=== PATIENT | female | born 1965 | race Caucasian/White ===

== ENCOUNTER 2020-07-24 22:58 | Emergency (ER) | payer MEDICAID ==
[~2020-07-24] VITALS: Ht 162.6 cm; Wt 54.4 kg
[2020-07-24 23:15] VITALS: BP 106/76
--- NOTE | 2020-07-24 23:15 | NUR ---
ED Nurse Note: Patient brought into ED from the street by SANDR[facility] 60 for c/o abdominal pain that has been intermittent for years. Upon ED arrival, patient presents lethargic. Patient is able to provide name and answer what year it is after painful stimuli. She falls asleep in between answering questions. Patient is unable to provide detailed history due to mental status. Denies n/v/d. She is breathing normal and unlabored, 98% o2 sat on RA. Safety measures met; will cont. to monitor.
--- NOTE | 2020-07-24 23:15 | NUR ---
ED Nurse Note: Pt placed on preparation operator for monitoring.
--- NOTE | 2020-07-24 23:35 | Emergency Room Report ---
History of Present Illness General Chief Complaint: Abdominal Pain Source: EMS Present Illness HPI Paramedics transported this patient with abdominal pain. She was ambulatory and speaking with them initially. She complained about generalized abdominal pain. Did not rate the pain. I did not give her any treatment in the field either. The patient has become sleepy and will not answer questions. She is wearing a binder. They claim that she says that she has a history of abdominal pain. Also they claim that she has a history of GI cancer. They are uncertain whether she took any medication prior to coming in. The patient is lethargic and not answering questions therefore review of systems is not able to be completed at this time. Allergies: Coded Allergies: No Known Allergies (Unverified , 07/24/20) COVID-19 Screening Contact w/high risk pt: No Experienced COVID-19 symptoms?: No COVID-19 Testing performed GLAZE HANDLER: No Patient History Limited by: medical condition Past Medical History: see triage record Social History: Reports: smoking, drug use - See tox screen Social History Narrative From home although she states she is homeless at this time Reviewed Nursing Documentation: PMH: Agreed; PSxH: Agreed Nursing Documentation-PMH Hx Cardiac Problems: Yes Hx Hypertension: Yes Hx Asthma: Yes Hx Diabetes: Yes Hx Cancer: Yes - stomach History Of Psychiatric Problem: Yes Hx Cerebrovascular Accident: Yes Hx Seizures: Yes Review of Systems All Other Systems: limited Physical Exam Vital Signs Date Time Temp Pulse Resp B/P (MAP) Pulse Ox O2 Delivery O2 Flow Rate FiO2 07/24/20 23:02 98.2 78 18 106/76 (86) 98 Room Air Sp02 EP Interpretation: reviewed, normal General Appearance: no apparent distress, lethargic Eyes: bilateral eye PERRL, bilateral eye Scleral Injection ENT: other - Wearing mask Neck: supple Respiratory: lungs clear, normal breath sounds Cardiovascular #1: regular rate, rhythm Cardiovascular #2: 2+ radial (L) Gastrointestinal: soft, no guarding, no rebound, tenderness - Reacts with [place] breast where hands with deep palpation in epigastric area, other, decreased bowel sounds Genitourinary: no CVA tenderness Musculoskeletal: back normal, normal range of motion Neurologic: motor strength/tone normal, sensory intact, other - Lethargic Psychiatric: depressed affect - Lethargy Skin: no rash, warm/dry Medical Decision Making Homeless Attestation I, The treating physician Dr. Louis, have assessed and agree that patient is medically stable for discharge to an outpatient disposition. Diagnostic Impression: Primary Impression: Abdominal pain Qualified Codes: R10.84 - Generalized abdominal pain Additional Impression: Cocaine abuse ER Course Patient presents with complaints of generalized abdominal pain but is also l ethargic at this time. It is uncertain whether she took an opiate. She is protecting her airway and respiratory status is adequate with oxygen saturation of 99% on room air. Differential includes appendicitis, pancreatitis, gastritis, diverticulitis, urinary tract infection amongst others. Complicated exam as she appears to have taken some analgesic making her lethargic at this time. Evaluation with EKG, chest x-ray, abdomen film and labs. Treatment with IV hydration. As the patient is not complaining about pain at this time no analgesia or antinausea medication is ordered. EKG sinus rhythm rate of [address]-T wave changes. Chest x-ray with globular heart. Abdominal film with nonspecific bowel gas pattern with pronounced stomach bubble, increase stool. Labs remarkable for normal white count with slight anemia and normal platelets. CMP with minimally elevated glucose and BUN and creatinine. Lipase is minimally elevated. Alkaline phosphatase minimally elevated. Urinalysis without pyuria but ketones present. Tox screen positive for cocaine. Patient sleeping soundly. Because of increased stool load lactulose given orally. After several hours of observation patient awakens easily. Discussed results with patient including positive tox screen. She denies pain at this time. Abdomen is soft without guarding or rebound. She reports using a walker because of DVTs in her legs. There is no calf pain, swelling or edema at this time. Patient is ambulatory. Discussed the need for outpatient follow-up. No medical emergency at this time with decreased pain. Patient stable for outpatient observation and treatment. Laboratory Tests Test 07/24/20 23:20 07/25/20 00:20 White Blood Count 5.1 K/UL (4.8-10.8) Red Blood Count 4.21 M/UL (4.20-5.40) Hemoglobin 11.5 G/DL (12.0-16.0) L Hematocrit 34.0 % (37.0-47.0) L Mean Corpuscular Volume 81 FL (80-99) Mean Corpuscular Hemoglobin 27.2 PG (27.0-31.0) Mean Corpuscular Hemoglobin Concent 33.6 G/DL (32.0-36.0) Red Cell Distribution Width 15.8 % (11.6-14.8) H Platelet Count 184 K/UL (150-450) Mean Platelet Volume 6.3 FL (6.5-10.1) L Neutrophils (%) (Auto) 37.6 % (45.0-75.0) L Lymphocytes (%) (Auto) 47.1 % (20.0-45.0) H Monocytes (%) (Auto) 10.6 % (1.0-10.0) H Eosinophils (%) (Auto) 3.6 % (0.0-3.0) H Basophils (%) (Auto) 1.1 % (0.0-2.0) Prothrombin Time 10.8 SEC (9.30-11.50) Prothrombin Time INR 1.0 (0.9-1.1) Activated Partial Thromboplast Time 26 SEC (23-33) Urine Color Pale yellow Urine Appearance Clear Urine pH 5 (4.5-8.0) Urine Specific [place] 1.025 (1.005-1.035) Urine Protein 1+ (NEGATIVE) H Urine Glucose (UA) Negative (NEGATIVE) Urine Ketones 1+ (NEGATIVE) H Urine Blood Negative (NEGATIVE) Urine Nitrite Negative (NEGATIVE) Urine Bilirubin Negative (NEGATIVE) Urine Urobilinogen 4 MG/DL (0.0-1.0) H Urine Leukocyte Esterase 1+ (NEGATIVE) H Urine RBC 2-4 /HPF (0 - 2) H Urine WBC 2-4 /HPF (0 - 2) Urine Squamous Epithelial Cells Occasional /LPF Urine Bacteria Occasional /HPF (NONE) Urine Hyaline Casts 5-10 /LPF (NONE) H Urine Mucus Few /LPF (NONE/OCC) H Sodium Level 137 MMOL/L (136-145) Potassium Level 3.8 MMOL/L (3.5-5.1) Chloride Level 101 MMOL/L (98-107) Carbon Dioxide Level 31 MMOL/L (21-32) Blood Urea Nitrogen 22 mg/dL (7-18) H Creatinine 1.1 MG/DL (0.55-1.30) Estimated Glomerular Filtration Rate 51.3 mL/min (>60) Glucose Level 137 MG/DL (74-106) H Calcium Level 8.3 MG/DL (8.5-10.1) L Total Bilirubin 0.2 MG/DL (0.2-1.0) Aspartate Amino Transferase (AST) 22 U/L (15-37) Alanine Aminotransferase (ALT) 21 U/L (12-78) Alkaline Phosphatase 128 U/L (46-116) H Troponin I 0.023 ng/mL (0.000-0.056) Total Protein 6.5 G/DL (6.4-8.2) Albumin 3.9 G/DL (3.4-5.0) Globulin 2.6 g/dL Albumin/Globulin Ratio 1.5 (1.0-2.7) Lipase 458 U/L (73-393) H Urine Opiates Screen Negative (NEGATIVE) Urine Barbiturates Screen Negative (NEGATIVE) Phencyclidine (PCP) Screen Negative (NEGATIVE) Urine Amphetamines Screen Negative (NEGATIVE) Urine Benzodiazepines Screen Negative (NEGATIVE) Urine Cocaine Screen Positive (NEGATIVE) H Urine Marijuana (THC) Screen Negative (NEGATIVE) EKG Diagnostic Results Rate: normal Rhythm: NSR ST Segments: no acute changes - Nonspecific ST-T wave changes Rhythm Strip Diag. Results EP Interpretation: yes Rhythm: NSR, no PVC's, no ectopy Chest X-Ray Diagnostic Results Chest X-Ray Diagnostic Results : Chest X-Ray Ordered: Yes # of Views/Limited/Complete: 1 View Indication: Other EP Interpretation: Yes Interpretation: no consolidation, no effusion, no pneumothorax, other - globular heart Impression: Other Electronically Signed by: Electronically signed by Miguel A Louis MD Other X-Ray Diagnostic Results Other X-Ray Diagnostic Results : X-Ray ordered: abdomen # of Views/Limited Vs Complete: 2 View Indication: Pain EP Interpretation: Yes Interpretation: nonspecific bowel gas, no sbo, other - see above, increase colonic load Impression: Other Electronically Signed by: Electronically signed by Miguel A Louis MD Last Vital Signs Date Time Temp Pulse Resp B/P (MAP) Pulse Ox O2 Delivery O2 Flow Rate FiO2 07/25/20 05:25 98.6 60 14 110/58 100 Room Air Status: improved Disposition: HOME, SELF-CARE Condition: Improved Scripts Ondansetron Odt* (ZOFRAN ODT*) 4 Mg Tab.rapdis 4 MG BC EVERY 8 HOURS, #8 TAB 0 Refills Prov: Miguel A Louis MD 07/25/20 Acetaminophen (Tylenol) 325 Mg Tablet 650 MG ORAL Q6H PRN for Prn Pain/Headache/Temp > 101, #20 TAB 0 Refills Prov: Miguel A Louis MD 07/25/20 Referrals: NON PHYSICIAN (PCP) Miguel A Louis MD Jul 24, 2020 23:35
--- NOTE | 2020-07-24 23:41 | Diagnostic Imaging Report ---
EXAM: XR Abdomen, 2 Views CLINICAL HISTORY: ABD PAIN TECHNIQUE: Frontal view of the abdomen/pelvis with upright view of the abdomen. COMPARISON: None. FINDINGS: Intraperitoneal space: No free air. Gastrointestinal tract: Moderate amount of well-formed stools noted within the colon. No dilation. Bones/joints: Unremarkable. IMPRESSION: Moderate colonic stool burden without additional acute abnormality.
[2020-07-25 00:04] LABS: APPEARANCE,URINE CLEAR; BILIRUBIN, URINE NEGATIVE (NEGATIVE); GLUCOSE, URINE (UA) NEGATIVE (NEGATIVE); KETONES,URINE 1+ (NEGATIVE); LEUKOCYTE ESTERASE ,URINE 1+ (NEGATIVE); NITRITE,URINE NEGATIVE (NEGATIVE); PH,URINE 5 (4.5-8.0); PROTEIN,URINE 1+ (NEGATIVE); UROBILINOGEN,URINE 4 MG/DL (0.0-1.0)
[2020-07-25 00:06] LABS: COLOR,URINE PALE YELLOW
[2020-07-25 00:17] LABS: ALANINE AMINOTRANSFERASE 21 U/L (12-78); ALBUMIN 3.9 G/DL (3.4-5.0); ALBUMIN/GLOBULIN RATIO 1.5 (1.0-2.7); ALKALINE PHOSPHATASE 128 U/L (46-116); ASPARTATE AMINO TRANSFERASE 22 U/L (15-37); BILIRUBIN,TOTAL 0.2 MG/DL (0.2-1.0); BLOOD UREA NITROGEN 22 mg/dL (7-18); CALCIUM 8.3 MG/DL (8.5-10.1); CHLORIDE 101 MMOL/L (98-107); CREATININE 1.1 MG/DL (0.55-1.30); POTASSIUM 3.8 MMOL/L (3.5-5.1); SODIUM 137 MMOL/L (136-145)
[2020-07-25 00:22] LABS: CARBON DIOXIDE 31 MMOL/L (21-32)
[2020-07-25 00:24] LABS: BASOPHILS % (AUTO) 1.1 % (0.0-2.0); EOSINOPHILS % (AUTO) 3.6 % (0.0-3.0); HEMOGLOBIN 11.5 G/DL (12.0-16.0); LYMPHOCYTES % (AUTO) 47.1 % (20.0-45.0); MEAN CORPUSCULAR VOLUME 81 FL (80-99); MONOCYTES % (AUTO) 10.6 % (1.0-10.0); NEUTROPHILS % (AUTO) 37.6 % (45.0-75.0); PLATELET COUNT 184 K/UL (150-450); RED BLOOD COUNT 4.21 M/UL (4.20-5.40); RED CELL DISTRIBUTION WIDTH 15.8 % (11.6-14.8); WHITE BLOOD COUNT 5.1 K/UL (4.8-10.8)
[2020-07-25 01:20] VITALS: BP 110/75
--- NOTE | 2020-07-25 01:20 | NUR ---
ED Nurse Note: Patient is sleeping at this time while snoring. No signs of acute distress noted. VSS. Will continue to monitor.
[2020-07-25] MEDS ORDERED: Lactulose 20gm/30ml UDC ORAL ONE (01:30)
[2020-07-25 03:00] VITALS: BP 136/85
--- NOTE | 2020-07-25 03:00 | NUR ---
ED Nurse Note: Vital signs are stable as charted. Pt not c/o pain at this time. NAD noted. Breathing is normal and unlabored. Safety measures in place. Patient is arousable to touch.
[2020-07-25] MEDS ORDERED: TYLENOL325 MG ORAL (04:47)
[2020-07-25] MEDS ORDERED: ONDANSETRON ODT4 MG BC (04:47)
[2020-07-25 05:25] VITALS: BP 110/58
--- NOTE | 2020-07-25 05:25 | NUR ---
ER DISCHARGE NOTE: Patient is cleared to be discharged per ERMD, pt is aox4, on room air, with stable vital signs. pt was given dc and prescription instructions, pt was able to verbalize understanding, pt id band and iv site removed without complications. pt is able to ambulate with steady gait. pt took all belongings.
--- NOTE | 2020-07-27 06:18 | Diagnostic Imaging Report ---
EXAM: XR Chest, 1 View CLINICAL HISTORY: ABD PAIN TECHNIQUE: Frontal view of the chest. COMPARISON: No relevant prior studies available. FINDINGS: Lungs: Unremarkable. No consolidation. Pleural space: Unremarkable. No pneumothorax. Heart: Borderline enlarged cardiac silhouette. Mediastinum: Unremarkable. Bones/joints: Unremarkable. IMPRESSION: Borderline enlarged cardiac silhouette. Otherwise, no acute cardio pulmonary disease.
--- NOTE | 2020-07-27 06:20 | Cardiology Report ---
APPROVED REPORT EKG Measurement Heart [id number] VT [id number] <Conclusion> Normal sinus rhythm ST & T wave abnormality, consider lateral ischemia Abnormal ECG
== END 2020-07-25 05:25 | disposition home or self-care (01) ==
LOC: EDBD 22:58 → EMR 23:15
DX: R10.84 Generalized abdominal pain (principal); F14.10 Cocaine abuse, uncomplicated; F17.200 Nicotine dependence, unspecified, uncomplicated; I10 Essential (primary) hypertension; E11.9 Type 2 diabetes mellitus without complications; Z85.028 Personal history of other malignant neoplasm of stomach; G40.909 Epilepsy, unspecified, not intractable, without status epilepticus; Z86.73 Personal history of transient ischemic attack (TIA), and cerebral infarction without residual deficits; D64.9 Anemia, unspecified
CPT/HCPCS: 36415; 71045; 74018; 80053; 80307; 81003; 83690; 84484; 85025; 85610; 85730; 93005; 96360; 96361; J7030; Z7502; 99284